=== PATIENT | female | born 1955 | race Two or more races ===

== ENCOUNTER 2024-12-06 10:13 | Inpatient (IN) | payer BC, SELFPAY ==
[2024-12-06] VITALS (8 sets, daily range): BP systolic 99–142; BP diastolic 57–81; PULSE 54–65; RESP 16–99; TEMP 36.1–37.7; O2SAT 95–99
--- NOTE | 2024-12-06 10:20 | PC.NURSE ---
PROVIDER MADE AWARE OF PTS SYMPTOMS.
--- NOTE | 2024-12-06 10:38 | XR_ITS ---
Examination: CTA carotids with intravenous contrast CTA brain, head with intravenous contrast. 2-D sagittal, coronal reconstructions. 3-D reconstructions. Exam date and time: December 06, 2024 10:53 AM INDICATIONS: Stroke alert, difficulty speaking CTDI: vol (mGy) 21.8 DLP: (mGycm) 436 Technique: Multiple CTA axial brain, head carotid images post intravenous contrast injection 100 cc, Isovue-370. 2-D sagittal, coronal reconstructions. 3-D reconstructions, 3-D post processing including vascular maximum intensity projection images. Low dose protocols were performed. One or more of the following dose reduction techniques were used; automated exposure control, adjustment of the mA and/or KV according to patient size, use of iterative reconstruction technique. Findings: No significant common carotid carotid bifurcation or internal carotid artery stenoses Dominant vertebral artery with no critical stenoses Large enhancing mass in the left parietal lobe, at least 3.6 x 1.8 x 3.1 cm, please see the MRI brain report July 25, 2016 No cerebral large vessel arterial occlusions Edema surrounding this mass appears to be more prominent compared to the July 25, 2016 brain MRI No cerebral vessel arterial occlusions IMPRESSION: No significant neck arterial stenoses No cerebral abscess or arterial occlusions Large enhancing mass in the left parietal lobe, 3.6 x 1.8 x 3.1 cm, please see the MRI brain report July 25, 2016, differential would include meningioma, hemangioma, recommend repeat brain MRI MRA pre and post intravenous contrast follow-up
--- NOTE | 2024-12-06 10:38 | EKG_ITS ---
[facility] Test Date: 2024-12-06 Pat Name: HILARY CALI Department: Room: - Gender: Female Mother Superior: : 1955 Requested By: Beverly Tinajero Order Number: [id number] Reading MD: Beverly Tinajero Measurements Intervals New Point Rate: 60 P: 31 ID: [id number] QRS: -2 QRSD: 86 T: 43 QT: 431 QTc: 431 Interpretive Statements SINUS RHYTHM MODERATE ST DEPRESSION [0.05+ mV ST DEPRESSION] No previous ECG available for comparison /store/S0/[id number].pdf
--- NOTE | 2024-12-06 10:38 | XR_ITS ---
Examination: CT brain head without contrast. 2-D sagittal coronal reconstructions Date and time of exam:December 06, 2024 at 10:50 AM INDICATIONS: Stroke alert, difficulty speaking blurred vision beginning this morning CTDI: vol (mGy):48.4 DLP: (mGycm):954 Technique: Multiple CT axial sections of the brain have been obtained, 5 mm slice thickness. Contrast has not been administered. 2-D sagittal, coronal reconstructions have been obtained Low dose protocols were performed. One or more of the following dose reduction techniques were used; automated exposure control, adjustment of the mA and/or KV according to patient size, use of iterative reconstruction technique. Findings: Acute-appearing nonhemorrhagic infarct left middle cerebral artery distribution with extensive low-density Minimal mass effect upon the left lateral ventricle No acute hemorrhage Cranial vault intact IMPRESSION: Acute-appearing nonhemorrhagic infarct left middle cerebral artery distribution
--- NOTE | 2024-12-06 10:39 | PD.EDRME ---
Rapid Medical Screening Exam RME Arrival date/time: 12/06/24 10:13 This is a 69-year-old female that is brought in by son with complaints of some expressive aphasia. Patient was last seen by family at 9 PM. Patient states that at 9 PM she went to sleep but then shortly woke up after going to bed bed, does not know the exact time, she started to have a headache and also felt like she was not able to talk. Patient states that she did not let her family know. When she woke up family noticed she was having trouble talking. Patient has a history of hyperlipidemia. I have greeted and performed a focused initial assessment of this patient. Initial appropriate labs ordered at this time. A comprehensive ED assessment and evaluation of the patient and analysis of all test and completion of medical decision making process will be conducted by additional ED provider. Chief Complaint: Neuro Symptoms/Deficit Time Seen by Provider: 12/06/24 10:22 Vital signs: Vital Signs Temperature 99.8 F 12/06/24 10:25 Pulse Rate 65 12/06/24 10:25 Respiratory Rate 18 12/06/24 10:25 Blood Pressure 142/81 H 12/06/24 10:25 Pulse Oximetry (%) 97 12/06/24 10:25 Oxygen Delivery Method Room Air 12/06/24 10:25
[2024-12-06 11:08] LABS: Basophils % (Auto) 0 % (0-2.5); Eosinophils % (Auto) 0 % (0-10); Hematocrit 41.5 % (36.0-46.0); Hemoglobin 14.5 g/dL (12.0-16.0); Immature Granulocytes % (Auto) 0 % (0-0); Immature Granulocytes Auto 0.04 Thou/mm3 (0.00-0.00); Lymphocytes # (Auto) 2.6 Thou/mm3 (1.0-4.8); Lymphocytes % (Auto) 26 % (10-50); Mean Corpuscular HGB Conc 34.9 g/dl (31.0-37.0); Mean Corpuscular Hemoglobin 29.9 pg (25.0-35.0); Mean Corpuscular Volume 86 fL (80-100); Monocytes # (Auto) 0.4 Thou/mm3 (0.0-0.8); Monocytes % (Auto) 4 % (0-12); Neutrophils % (Auto) 69 % (37-80); Nucleated Red Blood Cell % 0 /100 WBC (0); Platelet Count 230 Thou/mm3 (140-440); RDW Standard Deviation 37.3 fL (36.4-46.3); Red Blood Count 4.85 Miln/mm3 (4.00-5.20); White Blood Count 10.1 Thou/mm3 (3.6-11.0)
--- NOTE | 2024-12-06 11:19 | ESCONSULT_ITS ---
History of Present Illness Data of Consult Primary Care Provider: Physician No Primary/Family Consult Narrative History of present illness: 69yo woman with past medical history significant for HLD and report of prior stroke, who presents today with last known well of 9pm at time of sleep last night, and then felt ill all night, and woke up this morning around 7:30AM with headache, not able to speak well, and with blurred vision. cc:: cc: Meds Home Medications and Allergies Allergies Allergy/AdvReac Type Severity Reaction Status Date / Time No Known Allergies Allergy Verified 12/06/24 10:20 Exam - Neurology Vital Signs Temp Pulse Resp BP Pulse Ox O2 Del Method 99.8 F 65 18 142/81 H 97 Room Air 12/06/24 10:25 12/06/24 10:12/06/24 10:12/06/24 10:12/06/24 10:12/06/24 10:25 Narrative Exam Examination: BP(142/81), Pulse(65), Blood Glucose(109) 1A: Level of Consciousness - Alert; keenly responsive + 0 1B: Ask Month and Age - Both Questions Right + 0 1C: Blink Eyes & Squeeze Hands - Performs Both Tasks + 0 2: Test Horizontal Extraocular Movements - Normal + 0 3: Test Visual Box - No Visual Loss + 0 4: Test Facial Palsy (Use Grimace if Obtunded) - Normal symmetry + 0 5A: Test Left Arm Motor Drift - No Drift for 10 Seconds + 0 5B: Test Right Arm Motor Drift - No Drift for 10 Seconds + 0 6A: Test Left Leg Motor Drift - No Drift for 5 Seconds + 0 6B: Test Right Leg Motor Drift - No Drift for 5 Seconds + 0 7: Test Limb Ataxia (FNF/Heel-Bailey) - No Ataxia + 0 8: Test Sensation - Normal; No sensory loss + 0 9: Test Language/Aphasia - Normal; No aphasia + 0 10: Test Dysarthria - Normal + 0 11: Test Extinction/Inattention - No abnormality + 0 NIHSS Score: 0 Pre-Morbid Modified Darion Scale: Unable to assess Advanced Imaging: CTA Head and Neck Completed. LVO:No Patient in not a candidate for JAMI Metrics: Last Known Well: 12/05/2024 21:00:00 Dispatch Time: 12/06/2024 10:41:07 Arrival Time: 12/06/2024 10:40:00 Initial Response Time: 12/06/2024 10:41:52 Symptoms: word finding difficulty. Initial patient interaction: 12/06/2024 10:56:17 NIHSS Assessment Completed: 12/06/2024 10:56:59 Patient is not a candidate for Thrombolytic. Thrombolytic Medical Decision: 12/06/2024 10:57:57 Patient was not deemed candidate for Thrombolytic because of following reasons: LKW outside 4.5 hr window. . I personally Reviewed the CT Head and it Showed no acute hemorrhage or large evolving infarct. otherwise showing vasogenic edema in the left frontal lobe adjacent to previously known meningioma. Primary Provider Notified of Diagnostic Impression and Management Plan on: 12/06/2024 11:27:21 Results Labs 12/06/24 10:57 12/06/24 10:57 Labs: Short CBC 12/06/24 Range/Units 10:57 WBC 10.1 (3.6-11.0) Thou/mm3 Hgb 14.5 (12.0-16.0) g/dL Hct 41.5 (36.0-46.0) % Plt Count 230 (140-440) Thou/mm3 Assessment & Plan Assessment and plan (1) Aphasia: Status: Acute Assessment and plan: [facility] Services Patient Name: Milvia Cook Date of : 1955 Identification Number: Date of Service: 12/06/2024 10:41:07 Diagnosis: ? R47.01 - Aphasia Impression: ? 69F, pmh sig for left frontal meningioma, HLD, who presents today with acute onset transient aphasia, now resolved, NIHSS 0, LKW 21:00 on 12/05; c/f TIA vs focal seizure vs symptomatic vasogenic edema vs toxic metabolic encephalopathy. No TNK given LKW>4.5hr. No LVO on CTA. On my evaluation, the hypodensity in the the left MCA distirubtion on the CTH is not suggestive of acute ischemic process, but rather a vasogenic edema 2/2 meningioma in the left frontal aspect that was previously noted on her MRI brain from 2016. She will need empiric work-up for both TIA and focal seizure as below. We will proceed with DAPT for 21 day course per POINT/CHANCE protocol, along with keppra load, with plan for follow-up MRI brain with and without contrast. Recommendations: ? Bolus with Clopidogrel 300 mg bolus x1 and initiate dual antiplatelet therapy with Aspirin 81 mg daily and Clopidogrel 75 mg daily ? Antihypertensives PRN if Blood pressure is greater than 220/120 or there is a concern for End organ damage/contraindications for permissive HTN. If blood pressure is greater than 220/120 give labetalol PO or IV or Vasotec IV with a goal of 15% reduction in BP during the first 24 hours. ? Keppra 2g iv once, followed by 750mg q12 ? MRI brain WITH and without contrast ? routine EEG ? If symptom recurs or MRI shows worsening vasogenic edema, then give dexamethasone 10mg once, followed by 4mg q6 ? If work-up suggestive of seizure, then discontinue plavix; otherwise continue DAPT for 21 days, discontinue plavix after 21 days; continue ASA 81mg qD indefinitely. Rosuva 40mg qD; lower dose to 20mg qD if LDL<70 (or continue home statin at high intensity regimen) ? Toxic metabolic infectious work-up and empirical therapy per primary team Spoke with : ER provider This consult was conducted in real time using interactive audio and video technology. Patient was informed of the technology being used for this visit and agreed to proceed. Patient located in hospital and provider located at home/office setting. Patient is being evaluated for possible acute neurologic impairment and high probability of imminent or life-threatening deterioration. I spent total of 45 minutes providing care to this patient, including time for face to face visit via telemedicine, review of medical records, imaging studies and discussion of findings with providers, the patient and/or family. Dr Khanh Mcknight [facility] For Inpatient follow-up with [facility] physician please call [facility] at . As we are not an outpatient service for any post hospital discharge needs please contact the hospital for assistance. If you have any questions for the [facility] physicians or need to reconsult for clinical or diagnostic changes please contact us via [facility] at .
[2024-12-06 11:21] LABS: Partial Thromboplastin Time 26.5 Seconds (22.0-36.0); Prothrombin Time 11.1 Seconds (9.0-12.2)
[2024-12-06 11:26] LABS: Alanine Aminotransferase 27 U/L (10-49); Albumin, Serum 4.6 gm/dL (3.4-4.8); Albumin/Globulin Ratio 1.8 (1.2-2.2); Alkaline Phosphatase 68 U/L (46-116); Anion Gap 9 (7-16); Aspartate Amino Transferase 24 U/L (0-34); BUN/Creatinine Ratio 14 Ratio (12-20); Bilirubin,Total 0.7 mg/dL (0.3-1.2); Blood Urea Nitrogen 11 mg/dL (9-23); Calcium 9.1 mg/dL (8.3-10.6); Calcium (Corrected) 9.1 mg/dL (8.5-10.1); Carbon Dioxide 24.5 mMol/L (20.0-31.0); Chloride 104 mMol/L (98-107); Creatinine (Component) 0.8 mg/dL (0.6-1.3); Globulin 2.6 gm/dL (2.3-3.5); Glucose 109 mg/dL (74-106); Magnesium 1.8 mg/dL (1.6-2.6); Osmolality,Calculated 274 (275-295); Sodium 137 mMol/L (136-145); Total Protein 7.2 gm/dL (5.7-8.2); Troponin I < 0.002 ng/mL (0.0-0.045); eGFR > 60 See Note
[2024-12-06 11:45] LABS: HCG Titer if Positive Negative
--- NOTE | 2024-12-06 12:08 | PD.EDNEURO ---
Neuro Symptoms Deficit-RME/HPI General Chief Complaint: Neuro Symptoms/Deficit Stated Complaint: DIFFICULTY SPEAKING, BLURRY VISION, NUMBNESS TO L Time Seen by Provider: 12/06/24 10:22 Arrival date/time: 12/06/24 10:13 RME / HPI RME / HPI Narrative: 12/06/24 10:13 This is a 69-year-old female that is brought in by son with complaints of some expressive aphasia. Patient was last seen by family at 9 PM. Patient states that at 9 PM she went to sleep but then shortly woke up after going to bed bed, does not know the exact time, she started to have a headache and also felt like she was not able to talk. Patient states that she did not let her family know. When she woke up family noticed she was having trouble talking. Patient has a history of hyperlipidemia. I have greeted and performed a focused initial assessment of this patient. Initial appropriate labs ordered at this time. A comprehensive ED assessment and evaluation of the patient and analysis of all test and completion of medical decision making process will be conducted by additional ED provider. DR. BROWN MAIN ED EVALUTION: 69 year old female with history of hyperlipidemia presented to the ER accompanied by son with a chief complaint of aphasia. Patient's last known well was 2100 last night on 12/05/24 and continued to feel ill all night afterwards. Patient woke up around 0730 and noticed significant difficulty speaking and blurred vision. Related Data Allergies Allergy/AdvReac Type Severity Reaction Status Date / Time No Known Allergies Allergy Verified 12/06/24 10:20 Review of Systems Review of Systems Systems Reviewed: All systems reviewed, normal except as documented Narrative Review of Systems: Gen: No fever, no chills, no weight loss EYES: No discharge, + blurred vision, no pain HEENT: No ear pain, no congestion, no sore throat PULM: No shortness of breath, no cough, no congestion CV: No chest pain, no dyspnea on exertion, no palpitations GI: No nausea, no vomiting, no diarrhea, no pain, no constipation : No frequency, no urgency, no dysuria Musc/skel: No joint pain, no back pain Skin: No rash Psyc: No hallucinations, no depression Heme/Lymph: No easy bleeding or bruising tendencies Neuro: No weakness, no headache, +aphagia ED Exam Narrative Physical exam: GENERAL APPEARANCE: alert and oriented x 4, well-developed, well-nourished, no acute distress HEENT: normocephalic, atraumatic NECK: supple LUNGS: no respiratory distress, normal effort HEART: good peripheral perfusion ABDOMEN: non distended EXTREMITIES: atraumatic NEUROLOGIC: awake; alert and oriented x4; cranial nerves II-XII grossly intact PSYCHIATRIC: appropriate mood and affect SKIN: warm, dry, normal color; no rashes Course Quality Measures none Orders Category Date Time Status Patient Condition Routine Admission 12/06/24 13:23 Ordered Bedside Blood Glucose NOW Care 12/06/24 10:38 Active Curing Room Worker NOW Care 12/06/24 10:38 Active Continuous Pulse Oximetry NOW Care 12/06/24 10:38 Completed EKG (ED ONLY) *Do not use* NOW Care 12/06/24 10:38 Completed In and Out Catheter NEEDED Care 12/06/24 10:38 Active Insert IV NOW Care 12/06/24 10:38 Active Intake and Output QSHIFT Care 12/06/24 13:30 Ordered MRI Screening NOW Care 12/06/24 11:21 Active Miscellaneous Nursing Order NOW Care 12/06/24 13:23 Active NIH Stroke Scale now Care 12/06/24 10:38 Active NPO NOW Care 12/06/24 10:38 Active Notify provider NEEDED Care 12/06/24 13:23 Active Nurse Swallow Screen x1 Care 12/06/24 10:38 Active Obtain weight NOW Care 12/06/24 13:23 Active Consult to Neurology / Tele-Neurology Routine Cons 12/06/24 10:38 Active Consult to Neurology / Tele-Neurology Routine Cons 12/06/24 13:27 Active Referral Physical Therapy Routine Cons 12/06/24 13:[address] angio stroke protocol Stat Exams 12/06/24 10:[address] stroke protocol Stat Exams 12/06/24 10:38 Completed EKG (ED Only) Stat Exams 12/06/24 10:38 Draft MR head/brain wo/w con Stat Exams 12/06/24 Ordered CBC AM DRAW Lab 12/07/24 05:00 Ordered CBC AM DRAW Lab 12/08/24 05:00 Ordered CBC AM DRAW Lab 12/09/24 05:00 Ordered CBC Stat Lab 12/06/24 10:57 Completed CMP [Comprehensive Metabolic Panel] AM DRAW Lab 12/07/24 05:00 Ordered CMP [Comprehensive Metabolic Panel] AM DRAW Lab 12/08/24 05:00 Ordered CMP [Comprehensive Metabolic Panel] AM DRAW Lab 12/09/24 05:00 Ordered Comprehensive Metabolic Panel Stat Lab 12/06/24 10:57 Completed Drug Screen,Urine Stat Lab 12/06/24 12:10 Completed HCG Titer if Positive Stat Lab 12/06/24 10:57 Completed Lipid Panel AM DRAW Lab 12/07/24 05:00 Ordered Magnesium AM DRAW Lab 12/07/24 05:00 Ordered Magnesium Stat Lab 12/06/24 10:57 Completed Partial Thromboplastin Time Stat Lab 12/06/24 10:57 Completed Phosphorous AM DRAW Lab 12/07/24 05:00 Ordered Prothrombin Time with INR AM DRAW Lab 12/07/24 05:00 Ordered Prothrombin Time with INR Stat Lab 12/06/24 10:57 Completed Thyroid Stimulating Hormone AM DRAW Lab 12/07/24 05:00 Ordered Troponin I Stat Lab 12/06/24 10:57 Completed Urinalysis Routine Lab 12/06/24 13:23 Ordered Urinalysis Stat Lab 12/06/24 12:10 Completed Acetaminophen Tab [Tylenol Tab] Med 12/06/24 13:23 Active 650 mg PO Q6H PRN Clopidogrel [Plavix] Med 12/06/24 11:17 Discontinued 300 mg PO X1 ONE Dexamethasone Inj [Decadron Inj] Med 12/06/24 13:25 Discontinued 10 mg IVP X1 ONE Dexamethasone Inj [Decadron Inj] Med 12/06/24 18:00 Active 4 mg IV Q6HR Heparin Inj Med 12/06/24 14:00 Active 5,000 unit SC Q8HR Ondansetron Inj [Zofran Inj] Med 12/06/24 13:23 Active 4 mg IV Q6H PRN Senna [Senokot] Med 12/06/24 13:23 Active 2 tab PO BID PRN Code Status Routine Oth 12/06/24 13:23 Ordered EEG Awake and Drowsy Routine RT 12/06/24 11:17 Ordered Oxygen Delivery DAILY RT 12/06/24 13:23 Active Oxygen Delivery NOW RT 12/06/24 10:38 Active Vital Signs Vital signs: Vital Signs Temperature 99.8 F 12/06/24 10:25 Pulse Rate 65 12/06/24 10:25 Respiratory Rate 18 12/06/24 10:25 Blood Pressure 142/81 H 12/06/24 10:25 Pulse Oximetry (%) 97 12/06/24 10:25 Oxygen Delivery Method Room Air 12/06/24 10:25 Neuro Symptoms / Deficit MDM Narrative MDM Narrative:: Rissa Camara am scribing for and in the presence of Dr. Brown. Patient data External records reviewed:: [facility] previous records Clinical information provided by:: patient Social determinants that could affect healthcare access:: none Patient has the following chronic illnesses:: hypertension How is presenting disease/condition affected by chronic disease/condition?: exacerbated by Evaluation data The following diagnostics were reviewed and interpreted by me:: lab results, radiology exam(s) and EKG tracing(s) (EKG#1: EKG at 1116 hours. Interpreted by me: sinus rhythm, rate 60, no acute ischemic changes) Lab and/or radiology exams considered but not ordered:: none Interpretation Summary: Ordering Physician: Beverly Tinajero NP Date of Service: 12/06/24 Procedure(s): CT stroke protocol Accession Number(s): [id number] cc: Gal Rodríguez MD; NO PRIMARY/FAMILY,PHYSICIAN; Beverly Tinajero NP~ Examination: CT brain head without contrast. 2-D sagittal coronal reconstructions Date and time of exam:December 06, 2024 at 10:50 AM INDICATIONS: Stroke alert, difficulty speaking blurred vision beginning this morning CTDI: vol (mGy):48.4 DLP: (mGycm):954 Technique: Multiple CT axial sections of the brain have been obtained, 5 mm slice thickness. Contrast has not been administered. 2-D sagittal, coronal reconstructions have been obtained Low dose protocols were performed. One or more of the following dose reduction techniques were used; automated exposure control, adjustment of the mA and/or KV according to patient size, use of iterative reconstruction technique. Findings: Acute-appearing nonhemorrhagic infarct left middle cerebral artery distribution with extensive low-density Minimal mass effect upon the left lateral ventricle No acute hemorrhage Cranial vault intact IMPRESSION: Acute-appearing nonhemorrhagic infarct left middle cerebral artery distribution Dictated By: Gal Rodríguez MD Signed By: <Electronically signed by Gal Rodríguez MD in OV> 12/06/24 1057 Ordering Physician: Beverly Tinajero NP Date of Service: 12/06/24 Procedure(s): CT angio stroke protocol Accession Number(s): [id number] cc: Gal Rodríguez MD; NO PRIMARY/FAMILY,PHYSICIAN; Beverly Tinajero NP~ Examination: CTA carotids with intravenous contrast CTA brain, head with intravenous contrast. 2-D sagittal, coronal reconstructions. 3-D reconstructions. Exam date and time: December 06, 2024 10:53 AM INDICATIONS: Stroke alert, difficulty speaking CTDI: vol (mGy) 21.8 DLP: (mGycm) 436 Technique: Multiple CTA axial brain, head carotid images post intravenous contrast injection 100 cc, Isovue-370. 2-D sagittal, coronal reconstructions. 3-D reconstructions, 3-D post processing including vascular maximum intensity projection images. Low dose protocols were performed. One or more of the following dose reduction techniques were used; automated exposure control, adjustment of the mA and/or KV according to patient size, use of iterative reconstruction technique. Findings: No significant common carotid carotid bifurcation or internal carotid artery stenoses Dominant vertebral artery with no critical stenoses Large enhancing mass in the left parietal lobe, at least 3.6 x 1.8 x 3.1 cm, please see the MRI brain report July 25, 2016 No cerebral large vessel arterial occlusions Edema surrounding this mass appears to be more prominent compared to the July 25, 2016 brain MRI No cerebral vessel arterial occlusions IMPRESSION: No significant neck arterial stenoses No cerebral abscess or arterial occlusions Large enhancing mass in the left parietal lobe, 3.6 x 1.8 x 3.1 cm, please see the MRI brain report July 25, 2016, differential would include meningioma, hemangioma, recommend repeat brain MRI MRA pre and post intravenous contrast follow-up Dictated By: Gal Rodríguez MD Signed By: <Electronically signed by Gal Rodríguez MD in OV> 12/06/24 1117 Medications / Prescriptions Medications or Prescriptions considered but not ordered:: none Medication administrations:: Medication Administration History Acetaminophen (Acetaminophen 325 Mg Tablet) 650 mg PO Q6H PRN PRN Reason: PAIN OR FEVER > 101 Stop: 01/05/25 13:22 Dexamethasone Sodium Phosphate (Dexamethasone Sod Phos Inj 4 Mg/Ml Vial) 4 mg IV Q6HR STEPHEN; Protocol Stop: 01/05/25 17:59 Heparin Sodium (Porcine) (Heparin Sod Inj 5000 Unit/Ml Vial) 5,000 unit SC Q8HR STEPHEN Stop: 12/20/24 13:59 Ondansetron HCl (Ondansetron Inj 2 Mg/Ml Inj 2 Ml) 4 mg IV Q6H PRN; Protocol PRN Reason: NAUSEA OR VOMITING Stop: 01/05/25 13:22 Sennosides (Senna Tablet) 2 tab PO BID PRN; Protocol PRN Reason: CONSTIPATION Stop: 01/05/25 13:22 Discontinued Medications Clopidogrel Bisulfate (Clopidogrel Bisulfate 75 Mg Tablet) 300 mg PO X1 ONE Stop: 12/06/24 11:18 Last Admin: 12/06/24 12:20 Dose: 300 mg Documented By: TM Dexamethasone Sodium Phosphate (Dexamethasone Sod Phos Inj 4 Mg/Ml Vial) 10 mg IVP X1 ONE; Protocol Stop: 12/06/24 13:26 see above Consultations Consultation(s) initiated? (list below): Yes Consultation #1 (Physician, Specialty, Details): I spoke with Dr. Mcknight, Tele[facility]rologist, and made aware of the patient?s HPI, PMHx, lab and/or radiology results. Discussed treatment plan. Will consult an admission to the hospitalist. Time: 11:11 Consultation #2 (Physician, Specialty, Details): Admission Resident working with Dr. Baires was made aware of the patient?s HPI, PMHx, lab and/or radiology results. Treatment plan was discussed. Will admit for further evaluation and management. Accepts patient for admission. Time: 11:30 Diagnosis Neuro Differential Diagnosis: subarachnoid hemorrhage, peripheral neuropathy and other (stroke) Most likely diagnosis given after review of the tests above:: Aphasia Admission Indicated Admission indicated?: indicated Admission Request Was there a request for admission?: Yes Admission Attestation Admission request attestation: Discussed case with [] from Hospitalist service regarding admission. Discussed patients ED course, exam findings, labs, and radiology results. The Hospitalist [agrees,declines] to accept the patient for admission. Disposition Plan Disposition Plan: Admit Discharge Plan Plan Patient Disposition: Admit Acute Care w/in Hospital Problem List Clinical Impression: Aphasia
[2024-12-06] MEDS: CLOPIDOGREL BISULFATE 75 MG TABLET 300 MG PO (12:20)
[2024-12-06 12:28] LABS: Collection Type, Urine Voided
--- NOTE | 2024-12-06 12:29 | PC.CC ---
Patient is a 69 year-old female who presents to the hospital for Stroke rule out. Dianna SILVA made [id number] contact with patient. ASW introduced self, role, and reason for visit. Patient appeared alert and oriented to self, location, and situation. Patient was pleasant and engaged in initial assessment. Patient confirmed information on demographics and reports to living at home with her children. Patient reports she is employed full-time at [email or web address]. At home patient reports she ambulates independently and completes her own ADLs. Patient does not use any DME at home. Patient receives primary care at [facility] and uses [facility] for prescription medications. Upon discharge the patient plans to return home. technical services representative to follow up with any discharge needs.
[2024-12-06 12:37] LABS: Bilirubin,Urine Negative (Negative); Blood,Urine Negative (Negative); Clarity,Urine Clear (Clear/Hazy); Color,Urine Colorless (Lt Yel-Yel); Glucose, Urine Negative (Negative); Ketones,Urine Trace (Negative); Leukocyte Esterase,Urine Negative (Negative); Nitrite,Urine Negative (Negative); Protein,Urine Negative (Neg - Trace); RBC,Urine 2 /hpf (0-3); Specific Gravity,Urine 1.031 (1.001-1.035); Squamous Epithelial Cell,Urine 2 /hpf (0-5); Urobilinogen,Urine Negative mg/dL (0.0-1.0); WBC,Urine < 1 /hpf (0-5)
[2024-12-06 12:54] LABS: Amphetamine/Methamp Scrn,U Negative (Negative); Barbiturate Screen,Urine Negative (Negative); Benzodiazepines Screen,Urine Negative (Negative); Benzoylecgonine Screen, Ur Negative (Negative); Fentanyl Screen,Urine Negative (Negative); Opiate Screen,Urine Negative (Negative); THC Screen,Urine Negative (Negative)
--- NOTE | 2024-12-06 13:09 | PC.NURSE ---
PT HR WENT TO 49BPM WHILE PT WAS RESTING W/EYES CLOSED, THIS RN WENT TO BEDSIDE TO ASSESS PT. PT DENIES ANY ASSOCIATED SYMPTOMS, PROVIDER MADE AWARE. SON AT BEDSIDE ATTENTIVE TO PT, CALL [facility] REMAINS IN REACH, WILL CONTINUE W/POC.
--- NOTE | 2024-12-06 13:47 | PD.RESHP ---
Documentation for date of: 12/06/24 [facility] History of Present Illness History of present illness: Patient is a 69-year-old female Ivorian only speaking, accompanied by the son who contributed to H&P. Per son patient has been having some headache and feeling lost for words. Per son this is not her usual presentation, upon questioning the patient she reported that she has had a few episodes like that where she has difficulty finding words, can have numbness over her face or 1 side of the body, but they are usually self-limiting and resolve on their own. Last night son found the patient was having trouble finding words, and brought her to the emergency room for evaluation. The patient denied any dizziness, motor deficits or visual deficits. Denied passing out, denied having a seizure. Stroke alert was initiated in the ER due to new onset aphasia and numbness. Teleneurology was consulted who recommended giving the patient clopidogrel bolus and started on dual antiplatelet. Imaging findings concerning for vasogenic edema secondary to meningioma which was noted on previous MRI brain from 2016. Also recommended Keppra loading dose due to concern for possible seizure. Past medical history: Hyperlipidemia Past surgical history: History of tubal ligation and Social history: Denies smoking or drinking. No reported drug use. Family history: Family history negative for cardiac disorders or neoplasms. Review of Systems Review of Systems Systems Reviewed: All systems reviewed, normal except as documented Past Medical History Past Medical History CARDIAC: Negative Congestive Heart Failure RESPIRATORY: Negative Respiratory Disorders or Chronic Obstructive Pulmonary Disease (COPD) GENITOURINARY: Negative Renal Disease ENDOCRINE: Negative Diabetes Mellitus Type 1 or Diabetes Mellitus Type 2 Social History SMOKING STATUS: Never smoker Exam Vital Signs Temp Pulse Resp BP Pulse Ox O2 Del Method 98.9 F 58 L 18 142/66 H 99 Room Air 12/06/24 12:17 12/06/24 12:17 12/06/24 12:17 12/06/24 12:17 12/06/24 12:17 12/06/24 12:17 Narrative Exam General: AOx3, cooperative, Ivorian only speaking female, in no acute distress Skin: Intact, no cyanosis or edema noted. HEENT: Atraumatic/normocephalic, MADDY, neck supple Heart: RRR, S1 and S2 without clicks or murmurs Lungs: Clear on auscultation bilaterally, no difficulty breathing Abdomen: Soft, nontender. Bowel sounds present . Vascular: Peripheral pulses palpable Neuro: No focal neurological deficits noted. Results: Labs 12/07/24 05:00 12/07/24 05:00 Labs: Short CBC 12/06/24 Range/Units 10:57 WBC 10.1 (3.6-11.0) Thou/mm3 Hgb 14.5 (12.0-16.0) g/dL Hct 41.5 (36.0-46.0) % Plt Count 230 (140-440) Thou/mm3 BMP 12/06/24 10:57 Sodium 137 Potassium 4.0 Chloride 104 Carbon Dioxide 24.5 BUN 11 Creatinine 0.8 Glucose 109 H Calcium 9.1 Cardiac Enzymes 12/06/24 Range/Units 10:57 Troponin I < 0.002 (0.0-0.045) ng/mL Liver Function 12/06/24 Range/Units 10:57 Total Bilirubin 0.7 (0.3-1.2) mg/dL AST 24 (0-34) U/L ALT 27 (10-49) U/L Alkaline Phosphatase 68 (46-116) U/L Albumin 4.6 (3.4-4.8) gm/dL Urine 12/06/24 Range/Units 12:10 Urine Color Colorless A (Lt Yel-Yel) Urine Clarity Clear (Clear/Hazy) Urine pH 7.0 (5.0-7.0) Ur Specific [place] 1.031 (1.001-1.035) Urine Protein Negative (Neg - Trace) Urine Glucose (UA) Negative (Negative) Quality Measures Quality Measures none Advance care planning discussed with:: patient and child Medications Home Medications and Allergies Home Medications ?Medication ?Instructions ?Recorded ?Confirmed ?Type krill oil 500 mg capsule 500 mg PO DAILY 12/06/24 12/06/24 History Allergies Allergy/AdvReac Type Severity Reaction Status Date / Time No Known Allergies Allergy Verified 12/06/24 10:20 Visit Medications Acetaminophen (Acetaminophen 325 Mg Tablet) 650 mg PO Q6H PRN PRN Reason: PAIN OR FEVER > 101 Stop: 01/05/25 13:22 Dexamethasone Sodium Phosphate (Dexamethasone Sod Phos Inj 4 Mg/Ml Vial) 4 mg IV Q6HR STEPHEN; Protocol Stop: 01/05/25 17:59 Heparin Sodium (Porcine) (Heparin Sod Inj 5000 Unit/Ml Vial) 5,000 unit SC Q8HR STEPHEN Stop: 12/20/24 13:59 Ondansetron HCl (Ondansetron Inj 2 Mg/Ml Inj 2 Ml) 4 mg IV Q6H PRN; Protocol PRN Reason: NAUSEA OR VOMITING Stop: 01/05/25 13:22 Sennosides (Senna Tablet) 2 tab PO BID PRN; Protocol PRN Reason: CONSTIPATION Stop: 01/05/25 13:22 Discontinued Medications Clopidogrel Bisulfate (Clopidogrel Bisulfate 75 Mg Tablet) 300 mg PO X1 ONE Stop: 12/06/24 11:18 Last Admin: 12/06/24 12:20 Dose: 300 mg Dexamethasone Sodium Phosphate (Dexamethasone Sod Phos Inj 4 Mg/Ml Vial) 10 mg IVP X1 ONE; Protocol Stop: 12/06/24 13:26 Assessment & Plan Plan Patient is a 69-year-old female Ivorian only speaking, accompanied by the son who contributed to H&P. Per son patient has been having some headache and feeling lost for words. Per son this is not her usual presentation, upon questioning the patient she reported that she has had a few episodes like that where she has difficulty finding words, can have numbness over her face or 1 side of the body, but they are usually self-limiting and resolve on their own. Last night son found the patient was having trouble finding words, and brought her to the emergency room for evaluation. The patient denied any dizziness, motor deficits or visual deficits. Denied passing out, denied having a seizure. Stroke alert was initiated in the ER due to new onset aphasia and numbness. Teleneurology was consulted who recommended giving the patient clopidogrel bolus and started on dual antiplatelet. Imaging findings concerning for vasogenic edema secondary to meningioma which was noted on previous MRI brain from 2016. Also recommended Keppra loading dose due to concern for possible seizure. #Concern for acute ischemic stroke #Space-occupying lesion, possible meningioma. Presenting complaint aphasia and paresthesia. Patient had prior episodes of similar complaints many years ago. MRI brain in 2016 showed 3.3 into 1.6 into 3.1 cm left parietal convexity mass, most likely meningioma. CT concerning for vasogenic edema, CTA showed contrast-enhancing mass consistent with prior MRI brain. Spoke to neurologist Dr. Klein who recommended starting patient on IV steroids, holding off on antiplatelets due to risk of bleeding into the mass, of note patient had already received clopidogrel bolus, but we will hold off on further antiplatelets as less likely ischemic stroke. Also recommended holding off on Keppra as patient has no evidence of witnessed seizure. ? IV dexamethasone 10 mg x 1, maintenance with dexamethasone 4 mg every 6 hourly. ? MRI brain ordered. ? Neurology consulted Dr. Klein is placed. Appreciate recommendations. ? EEG ordered ? Echocardiogram ordered Plan of care discussed with attending Dr. Viry De La Rosa PGY2 Attending Provider Attestation/Addendum Courtney Camara, DO, attest that I was physically present for the espinoza portions of the service and evaluated the patient with the resident and I reviewed and discussed the case with the resident and agree with the resident's findings and plans of care as documented above Patient is a 69-year-old female with past medical history of hyperlipidemia who presented to the ED with aphasia. Per patient, patient had trouble finding her words at around 830 this morning. Patient was subsequently brought to the ED due to concern for stroke. Son at bedside states that he noted that the patient was also slurring. Patient was able to comprehend speech when spoken to, but unable to respond in a fluent articulate manner. Upon my evaluation in the ED, symptoms had already resolved. Patient denied any numbness or weakness in her extremities, changes in vision, nausea, vomiting, headache, fevers, chills, seizures. Patient denies any history of migraines or seizures in the past. Stroke alert had been called in the ED during which a CT head was done during which patient was found to have an acute appearing nonhemorrhagic infarct of the left middle cerebral artery distribution. However, head and neck CTA was done Showing large enhancing mass in multiple lobe measuring 3.6 x 1.8 x 3.1 cm. This was also seen on a previous MRI done in July 2016 that was read of a meningioma at that time. Will admit patient to telemetry for further workup and medical management of acute stroke versus symptomatic brain mass. Neurology was consulted from the ED and also contacted by our team. Recommended to hold off any antiplatelet therapy, despite receiving Plavix load in the ED. Will start patient on Decadron 4 mg every 8 hours to reduce the vasogenic edema seen surrounding meningioma. Will order MRI with and without contrast as well as EEG. Will follow-up with neurology recommendations and place patient on seizure precautions. CT head findings were discussed with the patient and her son at bedside. Patient states that she has no prior knowledge of this brain mass in the past. Will also continue workup to rule out any new acute strokes.
[2024-12-06] MEDS: HEPARIN SOD INJ 5000 UNIT/ML VIAL SC ×2 (16:44→21:33)
[2024-12-06] MEDS: DEXAMETHASONE SOD PHOS INJ 4 MG/ML VIAL 10 MG IVP (16:45)
--- NOTE | 2024-12-06 18:31 | PC.NURSE ---
PT TAKEN TO FLOOR CONNECTED TO TELE BY THIS RN WITHOUT INCIDENT. STAFF AT BEDSIDE TO ASSUME CARE.
[2024-12-06] MEDS: FAMOTIDINE INJ 10 MG/ML VIAL 2 ML 20 MG IVP (21:33)
[2024-12-07] VITALS (9 sets, daily range): BP systolic 99–136; BP diastolic 57–68; PULSE 45–103; RESP 16–99; TEMP 36.1–36.6; O2SAT 93–98
--- NOTE | 2024-12-07 | XR_ITS ---
Examination: MRI of brain without intravenous contrast. MRI brain with intravenous contrast. Date and time of exam:December 07, 2024 1254 hours Comparison July 25, 2016 INDICATIONS: Stroke alert, difficulty with speech numbness on the face beginning last night, history left parietal convexity meningioma 3.6 cm on MR study July 25, 2016 Technique: Multiple axial and sagittal images of the brain to been obtained. Siemens high-resolution 1.52 Bertha short bore scanner utilized. Sagittal sections, T1 weighted images, TR 500, TE 14, are performed. Axial sections proton-density and T2-weighted images have been obtained. Inversion recovery axial images, TR 9260, TE 111, TR 2500. Diffusion weighted images, axial sections, TR 4800, TE 128, B value 1000. Axial sections, ADC map, TR 4800, TE 128. Axial and coronal images were also obtained post 15 cc gadolinium administered intravenously. Findings:: Enlargement of the sella turcica is not present. The optic chiasm and infundibular stalk are not remarkable. There is no localized enlargement of the medulla or lanette. Fourth ventricle and cerebellar tonsils appear normal in position. No subacute area of hemorrhage density is seen. Fourth ventricle is midline. Mass in the cerebellopontine angle region is not evident. 7th and 8th nerve complexes exhibit symmetry Globes are symmetrical Orbital musculature including medial lateral rectus muscles do not exhibit abnormality Increased white matter signal is prominent Effacement of the cortical sulcal markings is not identified. Mass effect upon the ventricular system is not identified. Diffusion-weighted images demonstrate no focus of restricted diffusion Contrast images demonstrate 40 x 24 x 36 mm enhancing left parietal convexity mass Impression: Negative for acute hemorrhage mass effect or midline shift No acute infarct Enlarging enhancing left parietal convexity mass most consistent with meningioma
--- NOTE | 2024-12-07 00:03 | PD.VCONSULT1 ---
Telemedicine visit statement This visit was conducted with the use of interactive audio and video telecommunications system that permits real time communication between the patient and the provider. Patient's verbal consent for virtual visit was obtained on 12/07/24 at 0003. History of Present Illness History of Present Illness History of present illness: Patient is a 69-year-old female presented with complaints of having headache and feeling lost for words. Her son stated that she has been having intermittent episodes of word finding difficulties and numbness over the face and right side of the body lasting for few minutes and then resolve spontaneously without any residual deficit. As she had another episode last night with trouble finding words and persisted, he decided to bring her to get evaluation. Denies any headache, dizziness nausea vomiting, witnessed a seizure-like episode prior to and during the ER visit. Stroke alert was initiated in the ER for new onset aphasia and numbness. Teleneurology was consulted who recommended giving the patient clopidogrel bolus and started on dual antiplatelet. Imaging findings concerning for vasogenic edema secondary to meningioma which was noted on previous MRI brain from 2016. Also recommended Keppra loading dose due to concern for possible seizure. In-house neurology was consulted to evaluate further. Past Medical History Past Medical History CARDIAC: Negative Congestive Heart Failure RESPIRATORY: Negative Respiratory Disorders or Chronic Obstructive Pulmonary Disease (COPD) GENITOURINARY: Negative Renal Disease ENDOCRINE: Negative Diabetes Mellitus Type 1 or Diabetes Mellitus Type 2 Social History SMOKING STATUS: Never smoker TeleMedicine ROS Pertinent Review of Systems Systems Reviewed: All systems reviewed, normal except as documented Meds Home Medications and Allergies Home Medications ?Medication ?Instructions ?Recorded ?Confirmed ?Type krill oil 500 mg capsule 500 mg PO DAILY 12/06/24 12/06/24 History Allergies Allergy/AdvReac Type Severity Reaction Status Date / Time No Known Allergies Allergy Verified 12/06/24 10:20 Virtual exam Vital Signs Temp Pulse Resp BP Pulse Ox O2 Del Method O2 Flow Rate 97.0 F 60 18 99/57 L 97 Room Air 99 12/06/24 19:52 12/06/24 20:00 12/06/24 19:52 12/06/24 19:52 12/06/24 19:52 12/06/24 16:10 12/06/24 19:52 Results Labs 12/06/24 10:57 12/06/24 10:57 Labs: Short CBC 12/06/24 Range/Units 10:57 WBC 10.1 (3.6-11.0) Thou/mm3 Hgb 14.5 (12.0-16.0) g/dL Hct 41.5 (36.0-46.0) % Plt Count 230 (140-440) Thou/mm3 BMP 12/06/24 10:57 Sodium 137 Potassium 4.0 Chloride 104 Carbon Dioxide 24.5 BUN 11 Creatinine 0.8 Glucose 109 H Calcium 9.1 Cardiac Enzymes 12/06/24 Range/Units 10:57 Troponin I < 0.002 (0.0-0.045) ng/mL Liver Function 12/06/24 Range/Units 10:57 Total Bilirubin 0.7 (0.3-1.2) mg/dL AST 24 (0-34) U/L ALT 27 (10-49) U/L Alkaline Phosphatase 68 (46-116) U/L Albumin 4.6 (3.4-4.8) gm/dL Urine 12/06/24 Range/Units 12:10 Urine Color Colorless A (Lt Yel-Yel) Urine Clarity Clear (Clear/Hazy) Urine pH 7.0 (5.0-7.0) Ur Specific [place] 1.031 (1.001-1.035) Urine Protein Negative (Neg - Trace) Urine Glucose (UA) Negative (Negative) Assessment & Plan Problem List (1) Aphasia: Status: Acute Assessment and plan: Secondary to brain mass in the left middle cerebral artery territory speech therapy referral (2) Brain tumor: Status: Acute Assessment and plan: Enhancing tumor mass in the left cerebral hemisphere most likely meningioma. Will hold off on antiplatelet agent therapy and Keppra as there is no witnessed seizures. Added Decadron 10 mg IV x 1 followed by 4 mg every 8. Follow-up with MRI brain with and without contrast and EEG tomorrow Continue to monitor closely for any worsening neurological deficit
[2024-12-07] MEDS: DEXAMETHASONE SOD PHOS INJ 4 MG/ML VIAL IV ×4 (00:10→21:04)
[2024-12-07 05:38] LABS: Basophils % (Auto) 0 % (0-2.5); Eosinophils % (Auto) 0 % (0-10); Hematocrit 41.6 % (36.0-46.0); Hemoglobin 14.4 g/dL (12.0-16.0); Immature Granulocytes % (Auto) 0 % (0-0); Immature Granulocytes Auto 0.01 Thou/mm3 (0.00-0.00); Lymphocytes # (Auto) 1.4 Thou/mm3 (1.0-4.8); Lymphocytes % (Auto) 32 % (10-50); Mean Corpuscular HGB Conc 34.6 g/dl (31.0-37.0); Mean Corpuscular Hemoglobin 29.8 pg (25.0-35.0); Mean Corpuscular Volume 86 fL (80-100); Monocytes # (Auto) 0.1 Thou/mm3 (0.0-0.8); Monocytes % (Auto) 1 % (0-12); Neutrophils % (Auto) 66 % (37-80); Nucleated Red Blood Cell % 0 /100 WBC (0); Platelet Count 224 Thou/mm3 (140-440); Red Blood Count 4.83 Miln/mm3 (4.00-5.20); White Blood Count 4.5 Thou/mm3 (3.6-11.0)
[2024-12-07 05:47] LABS: Prothrombin Time 11.3 Seconds (9.0-12.2)
[2024-12-07 06:09] LABS: Alanine Aminotransferase 23 U/L (10-49); Albumin, Serum 4.3 gm/dL (3.4-4.8); Albumin/Globulin Ratio 1.7 (1.2-2.2); Alkaline Phosphatase 64 U/L (46-116); Anion Gap 9 (7-16); Aspartate Amino Transferase 17 U/L (0-34); BUN/Creatinine Ratio 23 Ratio (12-20); Bilirubin,Total 0.7 mg/dL (0.3-1.2); Blood Urea Nitrogen 16 mg/dL (9-23); Calcium 9.2 mg/dL (8.3-10.6); Calcium (Corrected) 9.2 mg/dL (8.5-10.1); Carbon Dioxide 23.6 mMol/L (20.0-31.0); Cardiac Risk Estimate 3.1 RATIO (3.7-5.6); Chloride 107 mMol/L (98-107); Cholesterol 200 mg/dL (132-200); Creatinine (Component) 0.7 mg/dL (0.6-1.3); Globulin 2.6 gm/dL (2.3-3.5); Glucose 148 mg/dL (74-106); HDL Cholesterol 65 mg/dL (40-60); LDL Cholesterol,Calculated 127 mg/dL (0-130); Osmolality,Calculated 283 (275-295); Phosphorous 3.9 mg/dL (2.4-5.1); Potassium 4.6 mMol/L (3.4-5.1); Sodium 140 mMol/L (136-145); Thyroid Stimulating Hormone 0.16 uIU/mL (0.55-4.78); Total Protein 6.9 gm/dL (5.7-8.2); Triglycerides 41 mg/dL (30-150); eGFR > 60 See Note
[2024-12-07] MEDS: FAMOTIDINE INJ 10 MG/ML VIAL 2 ML 20 MG IVP ×2 (08:36→21:04)
[2024-12-07] MEDS: HEPARIN SOD INJ 5000 UNIT/ML VIAL SC ×2 (08:36→21:05)
--- NOTE | 2024-12-07 09:20 | PC.SS ---
rounding note: MRI pending, EEG pending and echo. Neuro already consulted
[2024-12-07 09:36] LABS: Free T4 (Free Thyroxine) 1.39 ng/dL (0.89-1.76)
--- NOTE | 2024-12-07 10:29 | PC.PT ---
PT eval only. Patient is I with transfers and ambulation without AD.
--- NOTE | 2024-12-07 13:42 | PD.RESPRO ---
Documentation for date of: 12/07/24 Senior resident attestation: Patient evaluated at bedside, son is present at bedside to, reported improvement patient's speech, patient has no lingering deficits. Acute ischemic stroke was ruled out on MRI brain, shows meningioma Which has increased in size from last MRI in 2016, now reported as 40 x 24 x 36 mm enhancing left parietal convexity mass consistent with meningioma. Echocardiogram showed normal EF and negative bubble study. Mild to moderate mitral regurgitation. Pending neurology recommendations, anticipate discharge tomorrow. Recommend follow-up with neurosurgery on outpatient basis. #Aphasia #Space-occupying lesion left parietal lobe, likely meningioma plan of care discussed with rest of the team including my attending physician, except as noted. Rj PGY2 Subjective Subjective Interval history: No overnight events. Afebrile overnight. No bowel movements, Lactulose 10 mg X 1. Patient denied headaches. Denied double vision. Denied decreased motor strength. No aphasia noted on physical exam. Pending neuro recommendations. Echo and EEG. Exam Vital Signs Temp Pulse Resp BP Pulse Ox O2 Del Method O2 Flow Rate 97.0 F 58 L 18 115/63 96 Room Air 99 12/07/24 12:00 12/07/24 12:00 12/07/24 12:12/07/24 12:12/07/24 12:12/07/24 12:12/06/24 19:52 Narrative Exam General Appearance: Alert & Oriented X3, well-nourished female who is lying in bed in no acute distress HEENT: Skull symmetrical and atraumatic. Conjunctivae pin and moist. Pupils equal, round, reactive to light and accommodation (PERRL). External ear without lesion or discharge. Straight, nares patient, mucosa pink, no discharge. No thyroid nodule appreciated. No cervical lymphadenopathy. Cardio: Normal Rate and Rhythm with S1 and S2 heart sounds. No murmurs or extra heart sounds auscultated. No bruits on carotid auscultation. No peripheral edema or cyanosis. Lungs: Symmetric with good expansion. Chest and back non-tender. Breath sounds vesicular without crackles, wheezing or rhonchi Abdomen: Non-tender, Non-distended, Normal Reactive Bowel Sounds Neuro: Alert, cooperative, oriented to person, place, and time. Speech clear. CN grossly intact. Upper motor strength 5/5 and Lower motor strength 5/5. Sensation intact. Objective Labs 12/08/24 04:45 12/08/24 04:45 Labs: Laboratory Results - last 24 hr 12/07/24 05:00 WBC 4.5 D RBC 4.83 Hgb 14.4 Hct 41.6 MCV 86 MCH 29.8 MCHC 34.6 RDW Std Deviation 38.0 Plt Count 224 Neut % (Auto) 66 Lymph % (Auto) 32 [place] % (Auto) 1 Eos % (Auto) 0 Baso % (Auto) 0 Neut # (Auto) 3.0 Lymph # (Auto) 1.4 [place] # (Auto) 0.1 Eos # (Auto) 0.0 Baso # (Auto) 0.0 Immature Gran # (Auto) 0.01 H Absolute Nucleated RBC 0.00 Immature Gran % 0 Nucleated RBC % 0 PT 11.3 INR 1.0 Sodium 140 Potassium 4.6 D Chloride 107 Carbon Dioxide 23.6 Anion Gap 9 BUN 16 Creatinine 0.7 Estim Creat Clear Calc Not Performed. eGFR > 60 BUN/Creatinine Ratio 23 H Glucose 148 H Calculated Osmolality 283 Calcium 9.2 Corrected Calcium 9.2 Phosphorus 3.9 Magnesium 2.0 Total Bilirubin 0.7 AST 17 ALT 23 Alkaline Phosphatase 64 Total Protein 6.9 Albumin 4.3 Globulin 2.6 Albumin/Globulin Ratio 1.7 Triglycerides 41 Cholesterol 200 LDL Cholesterol, Calc 127 HDL Cholesterol 65 H Cholesterol/HDL Ratio 3.1 L TSH 0.16 L Free T4 1.39 Quality Measures Quality Measures none Advance care planning discussed with:: patient Assessment & Plan Assessment Current Active Medications: Generic Name Dose Route Start Last Admin Trade Name Freq PRN Reason Stop Dose Admin Acetaminophen 650 mg 12/06/24 13:23 Acetaminophen 325 Mg Tablet PO 01/05/25 13:22 Q6H PRN PAIN OR FEVER > 101 Atorvastatin Calcium 20 mg 12/07/24 21:00 Atorvastatin Calcium 20 Mg Tablet PO 01/06/25 20:59 HS STEPHEN Dexamethasone Sodium Phosphate 4 mg 12/07/24 14:00 Dexamethasone Sod Phos Inj 4 Mg/Ml Vial IV 01/06/25 13:59 Q8HR STEPHEN Protocol Famotidine 20 mg 12/06/24 21:00 12/07/24 08:36 Famotidine Inj 10 Mg/Ml Vial 2 Ml IVP 01/05/25 20:59 20 mg BID STEPHEN Administration Heparin Sodium (Porcine) 5,000 unit 12/06/24 21:00 12/07/24 08:36 Heparin Sod Inj 5000 Unit/Ml Vial SC 12/20/24 20:59 5,000 unit Q12HR STEPHEN Administration Ondansetron HCl 4 mg 12/06/24 13:23 Ondansetron Inj 2 Mg/Ml Inj 2 Ml IV 01/05/25 13:22 Q6H PRN NAUSEA OR VOMITING Protocol Sennosides 2 tab 12/06/24 13:23 Senna Tablet PO 01/05/25 13:22 BID PRN CONSTIPATION Protocol Plan Patient is a 69-year-old female with limited past medical history of previous left parietal convexity mass in 2016 who was admitted for aphasia and stroke work up. #Left parietal enhancing lesion #Cerebral edema #Aphasia, resolved #Concern for acute ischemic stroke, ruled out Presenting complaint aphasia and paresthesia. Patient had prior episodes of similar complaints many years ago. MRI brain in 2016 showed 3.3 into 1.6 into 3.1 cm left parietal convexity mass, most likely meningioma. CT concerning for vasogenic edema, CTA showed contrast-enhancing mass consistent with prior MRI brain. Spoke to neurologist Dr. Klein who recommended starting patient on IV steroids, holding off on antiplatelets due to risk of bleeding into the mass, of note patient had already received clopidogrel bolus, but we will hold off on further antiplatelets as less likely ischemic stroke. Also recommended holding off on Keppra as patient has no evidence of witnessed seizure. Plan: -Dexamethasone 4 mg every 6 hourly. -Atorvastatin 40 mg qday ? EEG ordered ? Echocardiogram ordered ? Neurology consulted Dr. Klein is placed. Appreciate recommendations. - The patient's plan was discussed with attending Dr. Baires and senior residents Dr. Rj Leija MD PGY1 Internal Medicine Attending Provider Attestation/Addendum I, Courtney Baires, DO, attest that I was physically present for the espinoza portions of the service and evaluated the patient with the resident and I reviewed and discussed the case with the resident and agree with the resident's findings and plans of care as documented above Patient seen and evaluated this AM. Patient states she is doing well, no further episodes of aphasia. Son is at bedside as well. Pending MRI today to further assess brain mass. Will follow up with neurology recommendations following MRI results. Patient is otherwise neurologically intact. No focal deficits noted on exam. MS and gross sensation is intact in all 4 extremities. She denies any numbness and tingling. Speech is fluent and articulate. No changes in vision. EOMI intact.
[2024-12-07] MEDS: LACTULOSE SYRUP 20 GM/30 ML UDC 10 GM PO (16:02)
--- NOTE | 2024-12-07 17:15 | ECHO_ITS ---
Transthoracic Echo Report Ht (in): 63 Wt (lb): 165 Exam Location: Portable Status: Inpatient Night Club Manager: ARTIE Coats^^^^ Indications: Procedure Performed: BP: / HR: MEASUREMENTS (Male / Female) Normal Values 2D ECHO LV Diastolic Diameter PLAX 4.2 cm 4.2 - 5.9 / 3.9 - 5.3 cm LV Systolic Diameter PLAX 2.9 cm IVS Diastolic Thickness 1.0 cm 0.6 - 1.0 / 0.6 - 0.9 cm LVPW Diastolic Thickness 1.1 cm 0.6 - 1.0 / 0.6 - 0.9 cm LV Relative Wall Thickness 0.5 Aortic Root Diameter 2.7 cm LA Systolic Diameter LX 3.5 cm 3.0 - 4.0 / 2.7 - 3.8 cm LA Volume Index 35.7 cm?/m? 16 - 28 cm?/m? Ascending Aorta Diameter 3.1 cm DOPPLER AV Peak Velocity 208.0 cm/s AV Peak Gradient 17.3 mmHg AV Mean Gradient 8.5 mmHg AV Velocity Time Integral 49.3 cm AI Peak Velocity 309.0 cm/s AI Peak Gradient 38.2 mmHg AI Pressure Half Time 1349.5 ms LVOT Peak Velocity 129.0 cm/s LVOT Peak Gradient 6.7 mmHg LVOT Velocity Time Integral 32.4 cm MV Peak Velocity 168.0 cm/s MV Peak Gradient 11.3 mmHg MV Mean Velocity 85.5 cm/s MV Mean Gradient 4.0 mmHg MV Area PHT 2.3 cm? MR Peak Velocity 593.5 cm/s MR Peak Gradient 140.9 mmHg Mitral E Point Velocity 108.0 cm/s Mitral A Point Velocity 154.0 cm/s Mitral E to A Ratio 0.7 LV E' Lateral Velocity 6.6 cm/s Mitral E to LV E' Lateral Ratio 16.4 LV E' Septal Velocity 8.0 cm/s Mitral E to LV E' Septal Ratio 13.6 TR Peak Velocity 229.7 cm/s TR Peak Gradient 21.1 mmHg PV Peak Velocity 121.0 cm/s PV Peak Gradient 5.9 mmHg RVOT Peak Velocity 76.1 cm/s FINDINGS Left Ventricle Normal left ventricular size, wall thickness, systolic function with no obvious regional wall motion abnormalities. There is grade I diastolic dysfunction of the left ventricle (impaired relaxation pattern). The left ventricular ejection fraction is normal, estimated at 65-70%. Right Ventricle The right ventricle is normal in size and systolic function. The estimated right ventricular systolic pressure, 23 mmHg. Left Atrium Upper normal left atrial size. Right Atrium The right atrium is normal by two-dimensional imaging, color flow and Doppler imaging with no structural abnormalities, no thrombus formation present. Atrial Septum The interatrial septum is normal to color flow Doppler and agitated saline imaging. Aorta The aorta is normal by two-dimensional, color flow and Doppler interrogation. Mitral Valve Moderate mitral regurgitation. Mild mitral annular calcification. Aortic Valve Aortic valve sclerosis. Diffuse calcification of the aortic valve. Tricuspid Valve There is mild tricuspid valve regurgitation. Pulmonic Valve Trivial pulmonic valve regurgitation. Vessels The pulmonary artery appears normal. The inferior vena cava pulmonary and hepatic veins appear normal. Pericardium The pericardium is normal by two-dimensional imaging. There is no significant pericardial effusion. CONCLUSIONS indication: Stroke R/o with bubble Normal-sized cardiac chambers. Normal size left ventricle with excellent LV systolic function ejection fraction of 65 to 70%. Mitral valve thickening with evidence of mild to moderate 1-2+ mitral regurgitation. The interatrial septum is normal to color flow Doppler and agitated saline imaging. Negative bubble study no evidence of intracardiac shunts or PFO. RV appears normal with RVSP 23 mmHg. Aortic valve sclerosis no stenosis. Mild tricuspid regurgitation with no evidence of pulmonary hypertension. Janki Reyes (Electronically Signed) Final Date: 07 December 2024 17:04
[2024-12-07] MEDS: ATORVASTATIN CALCIUM 20 MG TABLET PO (21:04)
--- NOTE | 2024-12-07 22:49 | PD.NEUROPROG ---
Documentation for date of: 12/07/24 Subjective Subjective Interval history: Patient was seen in telemetry at the bedside with her son while she was eating dinner. Denies any trouble with language, headache, nausea or vomiting. She denies any weakness or paresthesias anywhere. Exam - Neurology Vital Signs Temp Pulse Resp BP Pulse Ox O2 Del Method O2 Flow Rate 97.9 F 59 L 16 136/68 H 98 Room Air 99 12/07/24 20:00 12/07/24 20:00 12/07/24 20:00 12/07/24 20:00 12/07/24 20:00 12/07/24 20:00 12/06/24 19:52 Narrative Exam GENERAL APPEARANCE: Well hydrated, well-nourished in no acute distress. HEENT: Normocephalic, atraumatic, extraocular movements intact. Pupils: Equal reacting to light and accommodation NECK: Supple, no JVD or bruits. CARDIOVASULAR: Heart: S1, S2 heard, regular without S3-S4 or murmur no rubs or gallops. LUNGS/CHEST: Clear to auscultation bilaterally. No rails, rhonchi, or wheezing. Normal inspection. ABDOMEN: Soft, nontender, with normal bowel sounds. No pulsatile masses. No rebound, rigidity, or guarding. Normal inspection and palpation. EXTREMITIES: Normal inspection and palpation. No edema, clubbing or cyanosis. SKIN: Warm and dry without rashes. Normal inspection. MUSCULOSKELETAL: No cervical, thoracic, lumbar or midline bony tenderness. Normal inspection. NEURO: Alert, awake and oriented x3. Cranial nerves: II through XII grossly intact. Speech and language: Normal with no dysarthria or dysphasia. Motor system: Tone and bulk: Normal: Strength: 5 out of 5 in all 4 extremities; No pronator drift noted. Deep tendon reflexes: 2+ bilaterally symmetrical. Plantar reflex: Downgoing bilaterally. Sensory system: Intact to all modalities of sensation bilaterally. Coordination: Intact to recjwh-[id number] and uocl-dzcx-fjgk test bilaterally. No ataxia, no dysmetria, or dysdiadochokinesia noted. No intention tremors noted. Gait: Normal. Toe, heel, tandem walk all are normal. Romberg: Negative. No signs of meningeal irritation noted. PSYCHIATRIC: Normal mood and affect. Objective Labs 12/08/24 04:45 12/08/24 04:45 Labs: Laboratory Results - last 24 hr 12/07/24 05:00 WBC 4.5 D RBC 4.83 Hgb 14.4 Hct 41.6 MCV 86 MCH 29.8 MCHC 34.6 RDW Std Deviation 38.0 Plt Count 224 Neut % (Auto) 66 Lymph % (Auto) 32 [place] % (Auto) 1 Eos % (Auto) 0 Baso % (Auto) 0 Neut # (Auto) 3.0 Lymph # (Auto) 1.4 [place] # (Auto) 0.1 Eos # (Auto) 0.0 Baso # (Auto) 0.0 Immature Gran # (Auto) 0.01 H Absolute Nucleated RBC 0.00 Immature Gran % 0 Nucleated RBC % 0 PT 11.3 INR 1.0 Sodium 140 Potassium 4.6 D Chloride 107 Carbon Dioxide 23.6 Anion Gap 9 BUN 16 Creatinine 0.7 Estim Creat Clear Calc Not Performed. eGFR > 60 BUN/Creatinine Ratio 23 H Glucose 148 H Calculated Osmolality 283 Calcium 9.2 Corrected Calcium 9.2 Phosphorus 3.9 Magnesium 2.0 Total Bilirubin 0.7 AST 17 ALT 23 Alkaline Phosphatase 64 Total Protein 6.9 Albumin 4.3 Globulin 2.6 Albumin/Globulin Ratio 1.7 Triglycerides 41 Cholesterol 200 LDL Cholesterol, Calc 127 HDL Cholesterol 65 H Cholesterol/HDL Ratio 3.1 L TSH 0.16 L Free T4 1.39 Assessment & Plan Assessment and plan (1) Aphasia: Status: Resolved Assessment and plan: Secondary to surrounding edema from the brain tumor in the left frontal area Improved significantly after the steroids. (2) Brain tumor: Status: Chronic Assessment and plan: I independently reviewed the MRI images and interpreted the findings. As there is increase in the size of the tumor in the left frontal area compared to the study from 2016, despite the improvement in the language deficit from steroids, she would benefit from surgery as the tumor is on the surface. It is most likely meningioma with a dural tail. I have discussed with my colleague Dr. Martin in [facility] and he will see the patient sometime this week and decide about surgical intervention. Discussed in detail about the plan with the patient's son at the bedside. Patient can be discharged home on Decadron 4 mg every 12 hours.
[2024-12-08] VITALS: BP 108/58; PULSE 46; PULSE 50; RESP 15; TEMP 35.9; O2SAT 97
[2024-12-08 04:00] VITALS: BP 120/65; PULSE 51; RESP 13; TEMP 36.3; O2SAT 96
[2024-12-08] MEDS: ACETAMINOPHEN 325 MG TABLET 650 MG PO (05:28)
[2024-12-08] MEDS: DEXAMETHASONE SOD PHOS INJ 4 MG/ML VIAL IV ×2 (05:28→13:17)
[2024-12-08 05:41] LABS: Basophils % (Auto) 0 % (0-2.5); Eosinophils % (Auto) 0 % (0-10); Hematocrit 40.9 % (36.0-46.0); Hemoglobin 14.3 g/dL (12.0-16.0); Immature Granulocytes % (Auto) 0 % (0-0); Immature Granulocytes Auto 0.06 Thou/mm3 (0.00-0.00); Lymphocytes # (Auto) 1.7 Thou/mm3 (1.0-4.8); Lymphocytes % (Auto) 11 % (10-50); Mean Corpuscular Hemoglobin 30.1 pg (25.0-35.0); Mean Corpuscular Volume 86 fL (80-100); Monocytes # (Auto) 0.5 Thou/mm3 (0.0-0.8); Monocytes % (Auto) 3 % (0-12); Neutrophils # (Auto) 12.8 Thou/mm3 (1.8-7.7); Neutrophils % (Auto) 85 % (37-80); Nucleated Red Blood Cell % 0 /100 WBC (0); Platelet Count 253 Thou/mm3 (140-440); RDW Standard Deviation 38.6 fL (36.4-46.3); Red Blood Count 4.75 Miln/mm3 (4.00-5.20)
[2024-12-08 05:59] VITALS: BMI 28.9
[2024-12-08 06:30] LABS: Alanine Aminotransferase 21 U/L (10-49); Albumin, Serum 4.5 gm/dL (3.4-4.8); Albumin/Globulin Ratio 1.9 (1.2-2.2); Alkaline Phosphatase 63 U/L (46-116); Anion Gap 10 (7-16); Aspartate Amino Transferase 18 U/L (0-34); BUN/Creatinine Ratio 20 Ratio (12-20); Bilirubin,Total 0.5 mg/dL (0.3-1.2); Blood Urea Nitrogen 16 mg/dL (9-23); Calcium 9.5 mg/dL (8.3-10.6); Calcium (Corrected) 9.5 mg/dL (8.5-10.1); Carbon Dioxide 24.1 mMol/L (20.0-31.0); Chloride 109 mMol/L (98-107); Creatinine (Component) 0.8 mg/dL (0.6-1.3); Estimated Creatinine Clearance 67.4 mL/min (>60); Globulin 2.4 gm/dL (2.3-3.5); Glucose 133 mg/dL (74-106); Osmolality,Calculated 288 (275-295); Potassium 4.3 mMol/L (3.4-5.1); Sodium 143 mMol/L (136-145); Total Protein 6.9 gm/dL (5.7-8.2); eGFR > 60 See Note
[2024-12-08 08:00] VITALS: BP 115/58; PULSE 52; PULSE 53; RESP 15; TEMP 36; O2SAT 93
[2024-12-08] MEDS: HEPARIN SOD INJ 5000 UNIT/ML VIAL SC (08:33)
[2024-12-08] MEDS: FAMOTIDINE INJ 10 MG/ML VIAL 2 ML 20 MG IVP (08:33)
[2024-12-08 09:13] VITALS: PULSE 65; RESP 18; RESP 99
[2024-12-08 12:00] VITALS: BP 121/63; PULSE 60; RESP 20; TEMP 36.2; O2SAT 100
--- NOTE | 2024-12-08 14:02 | PD.RESDS ---
Planned Discharge Date 12/08/24 DS: Providers Provider Date of admission: 12/06/24 15:32 Primary care physician: Physician No Primary/Family Admitting Provider: Courtney Baires DO Attending Provider on Admission: Courtney Baires DO Consults: 12/06/24 10:38 Consult to Neurology / Tele-Neurology Routine Comment: Consulting Provider: [facility] 12/06/24 13:23 Referral Physical Therapy Routine Comment: Physician Instructions: 12/06/24 13:27 Consult to Neurology / Tele-Neurology Routine Comment: Consulting Provider: Imer Klein 12/06/24 17:14 Referral Speech Therapy Routine Comment: Attending Provider on DC: Rosie Leija MD Discharging Provider: Rosie Leija MD DS: Diagnosis Problem List Completed Was Problem List Reviewed/Reconciled?: Yes Hospital Course Hospital Course Hospital course: Summary: Patient is a 69-year-old female with limited past medical history of previous left parietal convexity mass in 2016 who was admitted for aphasia found to have a left parietal enhancing lesion which had grown in size as compared to previous MRI in 2016, possible meningioma. Stroke ruled out. ER Course: Stroke alert was initiated in the ER due to new onset aphasia and numbness. Teleneurology was consulted who recommended giving the patient clopidogrel bolus and started on dual antiplatelet. Imaging findings concerning for vasogenic edema secondary to meningioma which was noted on previous MRI brain from 2016. Also recommended Keppra loading dose due to concern for possible seizure. Hospital Course: Patient initially admitted for stroke work up as aphasia was noted by family members. CT head showing acute appearing non-hemorrhagic infarct left middle cerebral artery. Atorvastatin 40 mg HS started. Head/Neck CTA showing no significant neck arterial stenosis. Previous MRI July 25, 2016 showing large enhancing mass in the left parietal lobe 3.6X1.8X 3.1 cm. MRI codered for concern for space occupying lesion. MRI (november/2024) showed enlargine enhancing left pareital mass, possible meningioma. Neurology consulted. Patient started on dexamethasone and to be continued as outpatient. Echo showed EF 65% to 70% with moderate 1-2+mitral regurgitaiton. RVSP 23. Patinet will need close follow up with primary care provider, please follow up with with Dr. Klein. Please follow up with Dr. Martin at [facility]. -Continue Dexamethasone 4 mg twice daily until you follow up with neurology -Please follow up with neurology, , within one week of discharge -Please follow up at [facility] with Dr. Manolo Martin for meningioma. Please call his office . Address: [address] [place] [address] [facility], [address], [place] [address] -Please follow up with your primary care provider within one week of discharge -If your symptoms worsen,please seek immediate medical attention and return to your nearest emergency room -If you do not have a primary care provider, you may follow up at the [facility] [address], [place] [address], Stable for home #Left parietal enhancing lesion #Cerebral edema #Aphasia, resolved #Concern for acute ischemic stroke, ruled out - The patient's plan was discussed with attending Dr. Baires and senior residents Dr. Rj Leija MD PGY1 Internal Medicine Time Spent with Patient Time attestation: Total time spent providing and/or coordinating discharge services: at least 30 minutes of care and coordination Time spent: Greater than 30 minutes Exam Vital Signs Temp Pulse Resp BP Pulse Ox O2 Del Method O2 Flow Rate 96.8 F 65 18 115/58 L 93 L Room Air 99 12/08/24 08:00 12/08/24 09:13 12/08/24 09:13 12/08/24 08:00 12/08/24 08:00 12/08/24 08:00 12/06/24 19:52 Narrative Exam General Appearance: Alert & Oriented X3, well-nourished female who is lying in bed in no acute distress HEENT: Skull symmetrical and atraumatic. Conjunctivae pin and moist. Pupils equal, round, reactive to light and accommodation (PERRL). External ear without lesion or discharge. Straight, nares patient, mucosa pink, no discharge. No thyroid nodule appreciated. No cervical lymphadenopathy. Cardio: Normal Rate and Rhythm with S1 and S2 heart sounds. No murmurs or extra heart sounds auscultated. No bruits on carotid auscultation. No peripheral edema or cyanosis. Lungs: Symmetric with good expansion. Chest and back non-tender. Breath sounds vesicular without crackles, wheezing or rhonchi Abdomen: Non-tender, Non-distended, Normal Reactive Bowel Sounds Neuro: Alert, cooperative, oriented to person, place, and time. Speech clear. CN grossly intact. Upper motor strength 5/5 and Lower motor strength 5/5. Sensation intact. Discharge Plan Plan Patient Disposition: HOME (Self Care) Patient condition on transfer: Stable Care Plan Goals: Instructions: -Continue Dexamethasone 4 mg twice daily until you follow up with neurology -Please follow up with neurology, , within one week of discharge -Please follow up at [facility] with Dr. Manolo Martin for meningioma. Please call his office . Address: [address] [place] [address], [address], [place] [address] -Please follow up with your primary care provider within one week of discharge -If your symptoms worsen,please seek immediate medical attention and return to your nearest emergency room -If you do not have a primary care provider, you may follow up at the [facility] at [address] [place] [address] [address], [place] [address], Prescriptions/Referrals Prescriptions/Med Rec: New atorvastatin 40 mg tablet 40 mg PO QPM 15 Days Qty: 15 0RF dexamethasone 4 mg tablet 4 mg PO BID 14 Days Qty: 28 0RF famotidine 10 mg tablet 10 mg PO QDAY 14 Days Qty: 14 0RF Continued krill oil 500 mg capsule 500 mg PO DAILY Referrals: No Primary/Family,Physician [Primary Care Provider] - Imer Klein MD [Physician] - Patient/Caregiver Discharge Instructions Education Materials: Brain Tumors, Anatomy of the Brain, Discharge Instructions for Stroke Print Language: Mohawk Stand Alone Forms: Abby Award Info., Patient Portal Info Letter Discharge Order Discharge Orders: Discharge (Routine); Ordered 12/08/24 Ordered By: Rubén Brown Quality Discharge Quality Measures VTE prophylaxis
[2024-12-08 16:00] VITALS: BP 124/65; PULSE 53; PULSE 61; RESP 18; TEMP 36.4; O2SAT 98
--- NOTE | 2024-12-08 23:17 | VVPN_ITS ---
Telemedicine visit statement This visit was conducted with the use of interactive audio and video telecommunications system that permits real time communication between the patient and the provider. Patient's verbal consent for virtual visit was obtained on 12/08/24 at 2317. Documentation for date of: 12/08/24 Subjective Subjective Interval history: Patient is in telemetry. Denies any headache or language deficit. Significantly improved since admission no new symptoms reported. Virtual exam Vital Signs Temp Pulse Resp BP Pulse Ox O2 Del Method O2 Flow Rate 97.6 F 53 L 18 124/65 98 Room Air 99 12/08/24 16:00 12/08/24 16:00 12/08/24 16:00 12/08/24 16:00 12/08/24 16:00 12/08/24 16:00 12/06/24 19:52 Objective Labs 12/08/24 04:45 12/08/24 04:45 Labs: Laboratory Results - last 24 hr 12/08/24 04:45 WBC 15.0 H D RBC 4.75 Hgb 14.3 Hct 40.9 MCV 86 MCH 30.1 MCHC 35.0 RDW Std Deviation 38.6 Plt Count 253 Neut % (Auto) 85 H Lymph % (Auto) 11 [place] % (Auto) 3 Eos % (Auto) 0 Baso % (Auto) 0 Neut # (Auto) 12.8 H Lymph # (Auto) 1.7 [place] # (Auto) 0.5 Eos # (Auto) 0.0 Baso # (Auto) 0.0 Immature Gran # (Auto) 0.06 H Absolute Nucleated RBC 0.00 Immature Gran % 0 Nucleated RBC % 0 Sodium 143 Potassium 4.3 Chloride 109 H Carbon Dioxide 24.1 Anion Gap 10 BUN 16 Creatinine 0.8 Estim Creat Clear Calc 67.4 eGFR > 60 BUN/Creatinine Ratio 20 Glucose 133 H Calculated Osmolality 288 Calcium 9.5 Corrected Calcium 9.5 Total Bilirubin 0.5 AST 18 ALT 21 Alkaline Phosphatase 63 Total Protein 6.9 Albumin 4.5 Globulin 2.4 Albumin/Globulin Ratio 1.9 Assessment & Plan Problem List (1) Aphasia: Status: Resolved Assessment and plan: Secondary to brain mass in the left frontal area (2) Brain tumor: Status: Chronic Assessment and plan: Enhancing tumor mass in the left cerebral hemisphere most likely meningioma. Will hold off on antiplatelet agent therapy and Keppra as there is no witnessed seizures. Continue with Decadron 4 mg every 12 hours She is stable for discharge home and I will see her as an outpatient in 1 to 2 weeks and she will follow-up with neurosurgeon Dr. Martin this week from [facility]
== END 2024-12-08 16:53 | disposition home or self-care (01) | DRG 54 ==
LOC: SERX 13:57 → SERHOLD 12-07 06:48 → S2NX 12-07 06:48
PROVIDERS: Nurse Practitioner Family; Student in an Organized Health Care Education/Training Program; Admitting Provider Internal Medicine; Emergency Provider Emergency Medicine; Visit Provider Internal Medicine
DX: D32.9 Benign neoplasm of meninges, unspecified (principal); G93.6 Cerebral edema; R47.01 Aphasia; E78.5 Hyperlipidemia, unspecified; I34.0 Nonrheumatic mitral (valve) insufficiency
CPT/HCPCS: 36415; 70450; 70496; 70498; 70553; 80053; 80061; 80307; 81001; 83735; 84100; 84439; 84443; 84484; 84703; 85025; 85610; 85730; 93306; 95816; 97161; A4649; A9579; J1100; J1643; J3490; Q9967; A9270

== ENCOUNTER 2025-03-24 13:18 | Outpatient (RCR) | payer BC, SELFPAY ==
--- NOTE | 2025-03-24 13:37 | PTNOTE_ITS ---
PT OP Initial Eval Patient Information Outpatient Physical Therapy Treatment Date: 03/24/25 Visit Reasons: Strength and fall prevention Medical Diagnosis: Z48.811 Start of Care: 03/24/25 Date of Onset: 01/05/25 Smoking Status Smoking Status: Never smoker Initial Assessment Subjective: Pt is 69 yr old korean speaking female s/p resection of cranial tumor. Pt reports her balance and LE strength are better than it was. Now she is ambulating around the community and grocery stores and hasn't fallen or lost balance. PMH: hyperlipidemia, pre-DM Pt goal: not sure since she is doing better after HH therapy Objective: TU.06 30 sec chair to stand test: 16 SL balance: 5-8 seconds each Eyes closed feet together: minimal sway, no LOB Turning: no LOB or unsteadiness Gait: symmetrical LE strength: Quads: 4/5 HS: 4/5 Assessment: Pt presents with good balance and she scored higher than the norm on the TUG and 30 sec chair to stand test indicating functional LE strength and low fall risk. Pt doesn't need skilled therapy since she has good balance and LE strength and should continue with exercises at home. Short Term and Information Assurance Analyst Goals EVal and D/C Treatment Plan EVal and D/C Certification Dates: 03/24/25 Procedure Charges OP PT Eval Mod Complex 30 minutes: Yes
== END 2025-04-11 23:59 | disposition home or self-care (01) ==
LOC: CPTX 13:18
PROVIDERS: PCP Internal Medicine; Referring Provider Internal Medicine; Visit Provider Internal Medicine
DX: Z48.811 Encounter for surgical aftercare following surgery on the nervous system (principal)
CPT/HCPCS: 97162